=== PATIENT | female | born 1985 | race Two or more races ===

== ENCOUNTER 2018-09-13 11:20 | Observation (INO) | payer MEDICAID, OTHER ==
[~2018-09-13] VITALS: Ht 167.6 cm; Wt 80.3 kg
[2018-09-13] MEDS ORDERED: PREN-96 PO (11:37)
[2018-09-13 12:27] LABS: Basophils # (auto) 0.1 uL; Basophils % (auto) 0.7 % (0.0-2.0); Eosinophils # (auto) 0.1 uL; Eosinophils % (auto) 1.6 % (0.0-7.0); Lymphocytes # (auto) 2.5 uL; Mean Corpuscular Hemoglobin 29.8 pg (28.0-32.0); Mean Corpuscular Hgb Conc. 34.2 g/dL (32.0-36.0); Mean Corpuscular Volume 87.2 fL (80.0-100.0); Monocytes # (auto) 0.5 uL; Monocytes % (auto) 5.9 % (0.0-12.0); Neutrophils # (auto) 5.6 uL; Neutrophils % (auto) 63.8 % (37.0-80.0); Nucleated Red Blood Cells % 0.1 %; Platelet Count (auto) 202 10^3/uL (140-450); Red Blood Cells 4.71 10^6/uL (4.0-5.20); Red Cell Distribution Width 13.1 % (11.8-14.3); White Blood Cell 8.8 10^3/uL (4.4-10.8)
[2018-09-13 12:41] LABS: Urine Bacteria FEW /hpf (None Seen); Urine Blood Negative /uL (Negative); Urine Mucus FEW (None Seen); Urine Specific Gravity 1.009 (1.001-1.035); Urine WBC 1 /hpf (0 - 5)
[2018-09-13 12:54] LABS: Potassium 3.6 mmol/L (3.5-5.1)
[2018-09-13 12:55] LABS: Albumin 2.9 g/dL (3.4-5.0); BUN/Creatinine Ratio 18.2; Calcium 8.5 mg/dL (8.5-10.1); Uric Acid 5.6 mg/dL (2.6-6.0)
[2018-09-13 12:58] LABS: Bilirubin, Total 0.2 mg/dL (0.2-1.0); Total Protein 7.3 g/dL (6.4-8.2)
[2018-09-13 13:03] LABS: INR 0.85 (0.9-1.15); Partial Thromboplastin Time 27.6 sec (23.78-33.04); Prothrombin Time 9.2 sec (9.27-12.13)
== END 2018-09-13 15:25 | disposition home or self-care (01) | DRG 833 ==
LOC: LDRP 11:20
PROVIDERS: ADMIT Obstetrics & Gynecology; ATTEND Obstetrics & Gynecology
DX: O13.3 Gestational [pregnancy-induced] hypertension without significant proteinuria, third trimester (principal); Z3A.37 37 weeks gestation of pregnancy
CPT/HCPCS: 36415; 59025; 76805; 76818; 80053; 81001; 81002; 84550; 85025; 85610; 85730; G0378

== ENCOUNTER 2018-09-15 09:56 | Inpatient (IN) | payer MEDICAID ==
[~2018-09-15 09:56] MED LIST: PREN-96 PO
[2018-09-15 11:49] LABS: Protein, Urine 13.5 mg/dL (0.0-11.9)
[2018-09-15 11:50] LABS: 24 Hr. Total Protein, Urine 175.5 mg/24 Hr (<149.1)
[2018-09-15] MEDS ORDERED: LABETALOL HCL 200 MG TAB PO SCH (16:30)
[2018-09-15] MEDS ORDERED: LACT. RINGERS/OXYTOCIN 20UNITS 1,000 ML IV SCH ×2 (17:14→17:17)
[2018-09-15] MEDS ORDERED: LACTATED RINGER'S 1,000 ML IV SCH (17:14)
[2018-09-15] MEDS ORDERED: LIDOCAINE 2% (LOCAL ANESTH.) PF 5ml SDV ID ONE (17:15)
[2018-09-15] MEDS ORDERED: PHISODERM TOP SOLN 240ML BTL TOP PRN (17:15)
[2018-09-15] MEDS ORDERED: CARBOPROST TROMETHAMINE 250 MCG/1ML VIAL IM PRN (17:15)
[2018-09-15] MEDS ORDERED: DERMOPLAST 60ML BOTTLE TOP PRN (17:15)
[2018-09-15] MEDS ORDERED: METHYLERGONOVINE MALEATE 0.2 MG/ML AMP IM PRN (17:15)
[2018-09-15] MEDS ORDERED: WITCH HAZEL-GLYCERIN PAD TOP PRN (17:15)
[2018-09-15] MEDS ORDERED: NALBUPHINE HCL 10 MG/1ml INJECTION IV PRN (17:15)
[2018-09-15] MEDS ORDERED: TERBUTALINE SULFATE 1 MG/ML 1ML VIAL SC ONE (17:30)
[2018-09-15] MEDS ORDERED: fentaNYL CITRATE 100 MCG/2 ML VL IV ONE (17:30)
[2018-09-15] MEDS ORDERED: ePHEDrine SULFATE 50 MG/ML AMP IV ONE (17:30)
[2018-09-15] MEDS ORDERED: NALOXONE HCL 0.4 MG/ML VIAL IV ONE (17:30)
[2018-09-15] MEDS ORDERED: LIDOCAINE HCL 2 %PF INJ 10ML AMP IJ ONE (17:30)
[2018-09-15] MEDS ORDERED: fentaNYL W ROPIVACAINE 150 ML EPI SCH (17:30)
[2018-09-15 17:49] LABS: Basophils # (auto) 0.1 uL; Eosinophils # (auto) 0.1 uL; Eosinophils % (auto) 1.1 % (0.0-7.0); Hematocrit 43.2 % (36.0-46.0); Hemoglobin 14.5 g/dL (12.2-16.2); Lymphocytes % (auto) 29.9 % (10.0-50.0); Mean Corpuscular Hemoglobin 29.4 pg (28.0-32.0); Mean Corpuscular Hgb Conc. 33.6 g/dL (32.0-36.0); Mean Corpuscular Volume 87.4 fL (80.0-100.0); Monocytes # (auto) 0.7 uL; Monocytes % (auto) 7.1 % (0.0-12.0); Neutrophils # (auto) 6.1 uL; Neutrophils % (auto) 60.9 % (37.0-80.0); Nucleated Red Blood Cells % 0.1 %; Platelet Count (auto) 219 10^3/uL (140-450); Red Blood Cells 4.94 10^6/uL (4.0-5.20); Red Cell Distribution Width 13.3 % (11.8-14.3); White Blood Cell 10.1 10^3/uL (4.4-10.8)
[2018-09-15 18:03] LABS: INR 0.84 (0.9-1.15); Partial Thromboplastin Time 27.8 sec (23.78-33.04); Prothrombin Time 9.1 sec (9.27-12.13)
[2018-09-15 18:14] LABS: Albumin 3.1 g/dL (3.4-5.0); Potassium 4.5 mmol/L (3.5-5.1); Uric Acid 5.8 mg/dL (2.6-6.0)
[2018-09-15 18:17] LABS: BUN/Creatinine Ratio 21.1; Bilirubin, Total 0.2 mg/dL (0.2-1.0); Total Protein 7.7 g/dL (6.4-8.2)
[2018-09-15 18:23] LABS: Urine Bacteria MANY /hpf (None Seen); Urine Blood Negative /uL (Negative); Urine Mucus FEW (None Seen); Urine Specific Gravity 1.023 (1.001-1.035); Urine WBC 32 /hpf (0 - 5)
[2018-09-15] MEDS ORDERED: LIDOCAINE 2% (LOCAL ANESTH.) PF 5ml SDV ONE (18:37)
[2018-09-15] MEDS: IBUPROFEN 600 MG TAB PO PRN (20:00)
[2018-09-15 23:20] VITALS: BP 129/58
[2018-09-15] MEDS: ACETAMINOPHEN 325 MG TAB PO PRN (23:31)
[2018-09-16] VITALS (7 sets, daily range): BP systolic 110–153; BP diastolic 63–72
[2018-09-16] MEDS: IBUPROFEN 600 MG TAB PO PRN ×3 (02:52→17:42)
[2018-09-16] MEDS: ACETAMINOPHEN 325 MG TAB PO PRN (07:04)
[2018-09-16] MEDS ORDERED: TETANUS-DIPTH-ACEL PERTUSSIS 0.5ML SYRG IM ONE (09:00)
[2018-09-17] MEDS: IBUPROFEN 600 MG TAB PO PRN (00:53)
[2018-09-17 02:59] VITALS: BP 136/67
[2018-09-17 07:00] VITALS: BP 138/79
[2018-09-17 11:15] VITALS: BP 148/89
[2018-09-18 05:06] LABS: RPR Non Reactive (Non Reactive)
== END 2018-09-17 12:25 | disposition home or self-care (01) | DRG 560 ==
LOC: OBSVTOIN 09:56 → LDRP 09:56
PROVIDERS: ADMIT Obstetrics & Gynecology; ATTEND Obstetrics & Gynecology
PROC: 10E0XZZ Delivery of Products of Conception, External Approach (ICD-10-PCS; principal; 2018-09-15)
PROC: 0HQ9XZZ Repair Perineum Skin, External Approach (ICD-10-PCS; 2018-09-15)
DX: O62.3 Precipitate labor (principal); O70.0 First degree perineal laceration during delivery; Z37.0 Single live birth; Z3A.37 37 weeks gestation of pregnancy; Z23 Encounter for immunization
CPT/HCPCS: 36415; 59025; 59409; 76818; 80053; 81001; 81002; 84156; 84550; 85025; 85610; 85730; 86592; 86850; 86900; 86901; 90472; 90715; 96365; 96366; A6257; G0378; J2001; J2590